=== PATIENT | female | born 1970 | race Caucasian/White ===

== ENCOUNTER 2019-04-04 06:05 | Inpatient (IN) ==
[2019-04-04] MEDS ORDERED: CeFAZolin Syr 3,000MG/30 ML 3,000 MG/30 ML SYRINGE IVPB ONE (06:28)
[2019-04-04] MEDS ORDERED: Albuterol 2.5 MG/3 ML NEBULIZER IH PRN ×2 (06:28→06:58)
[2019-04-04] MEDS ORDERED: Ringers Solution, Lactated 1,000 ML IVC SCH (06:30)
[2019-04-04] MEDS ORDERED: *HR* Midazolam HCl 2 MG/2 ML VIAL ONE (06:48)
[2019-04-04] MEDS ORDERED: Dexamethasone 4 MG/ML VIAL ONE (06:48)
[2019-04-04] MEDS ORDERED: *HR* Propofol 200 MG/20 ML VIAL IVP ONE (06:48)
[2019-04-04] MEDS ORDERED: Ondansetron 4 MG/2 ML VIAL ONE (06:48)
[2019-04-04] MEDS ORDERED: Lidocaine -MPF 2% 2 ML VIAL ONE (06:48)
[2019-04-04] MEDS ORDERED: *HR* Rocuronium Bromide 50 MG/5 ML VIAL ONE (06:48)
[2019-04-04] MEDS ORDERED: *HR* FentaNYL (PF) 100 MCG/2 ML VIAL ONE (06:48)
[2019-04-04] MEDS ORDERED: Neostigmine Methylsulfate 3 MG/3 ML SYRINGE ONE (06:48)
[2019-04-04] MEDS ORDERED: Ketorolac 30 MG/ML VIAL ONE (06:48)
[2019-04-04] MEDS ORDERED: Famotidine 20 MG/2 ML VIAL IVP ONE (06:58)
[2019-04-04] MEDS ORDERED: Ketorolac 15 MG/ML VIAL IVP ONE (06:58)
[2019-04-04] MEDS ORDERED: Gabapentin 300 MG CAPSULE PO ONE (06:58)
[2019-04-04] MEDS ORDERED: *HR* Promethazine 25 MG/ML VIAL IVP PRN (06:58)
[2019-04-04] MEDS ORDERED: Acetaminophen IV 1,000 MG/100 ML INFUS..BTL IVPB ONE (06:58)
[2019-04-04] MEDS ORDERED: *HR* OxyCODONE Immed Rel 5 MG TABLET PO PRN (06:58)
[2019-04-04] MEDS ORDERED: Ondansetron 4 MG/2 ML VIAL IVP ONE (06:58)
[2019-04-04] MEDS ORDERED: *HR* HYDROmorphone (PF) 1 MG/ML SYRINGE IVP PRN ×2 (06:58→11:06)
[2019-04-04] MEDS ORDERED: Lidocaine -MPF 1% 2 ML AMPUL ONE (07:18)
[2019-04-04] MEDS ORDERED: *HR* Belladonna Alkaloids/Opium 30 MG RECTAL SUPPOSITORY RC ONE (07:22)
[2019-04-04] MEDS ORDERED: *HR* HYDROMORPHONE 2 MG/ML VIAL ONE (08:22)
[2019-04-04] MEDS ORDERED: tiZANidine 4 MG TABLET PO PRN (11:06)
[2019-04-04] MEDS ORDERED: Ondansetron 4 MG/2 ML VIAL IVP PRN (11:06)
[2019-04-04] MEDS ORDERED: Sennosides 8.6 MG TABLET PO PRN (11:06)
[2019-04-04] MEDS ORDERED: Naloxone 0.4 MG/ML INJ IVP PRN (11:06)
[2019-04-04] MEDS ORDERED: *HR* HYDROcodone/Acet 5/325 mg TABLET PO PRN (11:06)
[2019-04-04] MEDS: Ibuprofen 600 MG TABLET PO SCH ×2 (13:21→18:22)
[2019-04-04] MEDS: *HR* OxyCODONE/APAP 5/325 TABLET PO PRN ×2 (15:23→22:55)
[2019-04-04] MEDS ORDERED: risperiDONE 1 MG TABLET PO SCH (18:00)
[2019-04-04] MEDS: PARoxetine 30 MG TABLET PO SCH (22:53)
[2019-04-04] MEDS: clonazePAM 1 MG TABLET PO SCH (22:53)
[2019-04-05] MEDS: Ibuprofen 600 MG TABLET PO SCH ×3 (00:44→11:57)
[2019-04-05 06:26] LABS: Basophils % 0.2 %; Hematocrit 43.2 % (35.3-44.9); Hemoglobin 14.7 g/dL (11.5-15.4); Immature Granulocytes % 0.5 % (0-4); Lymphocytes # 1.2 K/mcL (0.6-4.6); Lymphocytes % 12.8 %; Mean Corpuscular Hemoglobin 34.8 pg (28.0-33.3); Mean Corpuscular Volume 102.1 fL (83.0-100.0); Mean Platelet Volume 10.4 fL (9.4-12.4); Monocytes # 0.7 K/mcL (0.0-1.3); Monocytes % 6.9 %; Neutrophils # 7.7 K/mcL (1.6-8.9); Platelet Count 212 K/mcL (140-400); Red Blood Count 4.23 M/mcL (3.82-4.97); Red Cell Distribution Width 13.4 % (11.5-14.5); Segmented Neutrophils % 79.6 %; White Blood Count 9.6 K/mcL (4.3-11.1)
[2019-04-05 06:53] LABS: eGFR For African Americans > 60 (> 60); eGFR For Non-African Americans > 60 (> 60)
[2019-04-05] MEDS: clonazePAM 1 MG TABLET PO SCH (07:43)
[2019-04-05] MEDS: *HR* OxyCODONE/APAP 5/325 TABLET PO PRN ×2 (07:45→13:00)
[2019-04-05] MEDS: PARoxetine 30 MG TABLET PO SCH (07:46)
[2019-04-05] MEDS ORDERED: risperiDONE 1 MG TABLET PO SCH (09:00)
[2019-04-05] MEDS ORDERED: Cholecalciferol (D-3) 1,000 UNIT (25MCG) TABLET PO SCH (09:00)
[2019-04-05] MEDS ORDERED: NON-FORMULARY MEDICATION 1 EACH EACH (Meloxicam [Mobic] 15 MG) PO SCH (09:00)
[2019-04-05 12:30] VITALS: BP 130/81
== END 2019-04-05 15:00 | disposition home or self-care (01) | DRG 742 ==
LOC: SAMDAY 06:05 → 1NENUPED 11:07
PROVIDERS: ADMIT Obstetrics & Gynecology; ATTEND Obstetrics & Gynecology

== ENCOUNTER 2020-07-14 16:15 | Inpatient (IN) ==
[2020-07-14] MEDS ORDERED: Ondansetron ODT 4 MG TAB.RAPDIS SL ONE (16:42)
[2020-07-14 17:00] LABS: Basophils # 0.1 K/mcL (0.0-0.2); Basophils % 0.5 %; Eosinophils # 0.1 K/mcL (0.0-0.6); Eosinophils % 1.4 %; Hematocrit 42.8 % (35.3-44.9); Hemoglobin 14.4 g/dL (11.5-15.4); Immature Granulocytes % 0.2 % (0-4); Lymphocytes # 2.1 K/mcL (0.6-4.6); Lymphocytes % 22.6 %; Mean Corpuscular HGB Conc 33.6 g/dL (31.6-35.5); Mean Corpuscular Hemoglobin 30.6 pg (28.0-33.3); Mean Corpuscular Volume 91.1 fL (83.0-100.0); Mean Platelet Volume 11.9 fL (9.4-12.4); Monocytes # 0.8 K/mcL (0.0-1.3); Monocytes % 8.5 %; Neutrophils # 6.1 K/mcL (1.6-8.9); Platelet Count 194 K/mcL (140-400); Red Cell Distribution Width 13.3 % (11.5-14.5); Segmented Neutrophils % 66.8 %; White Blood Count 9.1 K/mcL (4.3-11.1)
[2020-07-14 17:24] LABS: Acetaminophen < 10 mcg/mL (10-20); BUN/Creatinine Ratio 7 (6-26); Blood Urea Nitrogen 7 mg/dL (6-20); Carbon Dioxide 21 mEq/L (23-29); Chloride 103 mEq/L (98-107); Ethanol < 10 mg/dL (Less than 10); Glucose 87 mg/dL (70-105); Osmolality,Calculated 279 (280-300); Potassium 3.5 mEq/L (3.5-5.1); Salicylate < 2.5 mg/dL (15.0-30.0); Sodium 136 mEq/L (136-145); eGFR For African Americans > 60 (> 60); eGFR For Non-African Americans 59 (> 60)
[2020-07-14 17:32] LABS: Bacteria,Urine Few per hpf (None-Few); Bilirubin,Urine Negative (Negative); Blood,Urine Negative (Negative); Clarity,Urine Clear (Clear); Color,Urine Light-Yellow (Yellow); Glucose,Urine (UA) Normal (Normal); Ketones,Urine 10 mg/dL (Negative); Leukocyte Esterase,Urine Large (Negative); Mucus,Urine Few per lpf (None-Few); Nitrite,Urine Negative (Negative); Protein,Urine Negative (Neg-Trace); RBC,Urine 0-3 per hpf (0-3); Squamous Epithelial Cell,Urine Few per hpf (None-Few); Transitional Epi Cells,Urine Few per hpf (None-Few); Urobilinogen,Urine Normal (Normal); WBC,Urine 30-50 per hpf (0-3)
[2020-07-14 18:11] LABS: Adenovirus Not Detected (Not Detect); Bordetella Pertussis Not Detected (Not Detect); Chlamydophila pneumoniae Not Detected (Not Detect); Coronavirus 229E Not Detected (Not Detect); Coronavirus HKU1 Not Detected (Not Detect); Coronavirus NL63 Not Detected (Not Detect); Coronavirus OC43 Not Detected (Not Detect); Human Metapneumovirus Not Detected (Not Detect); Human Rhinovirus/Enterovirus Not Detected (Not Detect); Influenza A Subtype 2009 H1 Not Detected (Not Detect); Influenza B Not Detected (Not Detect); Mycoplasma pneumoniae Not Detected (Not Detect); Parainfluenza Virus 1 Not Detected (Not Detect); Parainfluenza Virus 2 Not Detected (Not Detect); Parainfluenza Virus 3 Not Detected (Not Detect); Parainfluenza Virus 4 Not Detected (Not Detect); Respiratory Syncytial Virus Not Detected (Not Detect); SARS-CoV-2 Not Detected (Not Detect)
[2020-07-14 18:14] LABS: Amphetamine Screen,Urine Negative ng/mL (Cutoff=1000); Barbiturate Screen,Urine Negative ng/mL (Cutoff=200); Benzodiazepines Screen,Urine Positive ng/mL (Cutoff=200); Cannabinoid Screen,Urine Negative ng/mL (Cutoff = 50); Cocaine Screen,Urine Negative ng/mL (Cutoff= 300); Opiate Screen,Urine Negative ng/mL (Cutoff=300); Phencyclidine Screen,Urine Negative ng/mL (Cutoff=25)
[2020-07-14] MEDS ORDERED: *HR* LORazepam 2 MG/ML VIAL IM PRN (22:49)
[2020-07-14] MEDS ORDERED: haloperidoL 5 MG TABLET PO PRN (22:49)
[2020-07-14] MEDS ORDERED: hydrOXYzine pamoate 25 MG CAPSULE PO PRN (22:49)
[2020-07-14] MEDS ORDERED: Acetaminophen 325 MG TABLET PO PRN (22:49)
[2020-07-14] MEDS ORDERED: traZODone 50 MG TABLET PO PRN (22:49)
[2020-07-14] MEDS ORDERED: Haloperidol Lactate 5 MG/ML VIAL IM PRN (22:49)
[2020-07-14] MEDS ORDERED: *HR* LORazepam 1 MG TABLET PO PRN (22:49)
[2020-07-15] MEDS: risperiDONE 1 MG TABLET PO SCH ×2 (08:53→20:35)
[2020-07-15] MEDS ORDERED: BuPROPion SR (12 HR) 150 MG TABLET PO SCH (09:00)
[2020-07-15] MEDS ORDERED: MOM Conc 10 ML UD.LIQ PO PRN (12:13)
[2020-07-15] MEDS ORDERED: Mag Hydrox/Al Hydrox/Simeth 30 ML UDC PO PRN (12:13)
[2020-07-15] MEDS: diazePAM 5 MG TABLET PO SCH (20:35)
[2020-07-16] MEDS ORDERED: BuPROPion XL (24 HR) 150 MG TABLET PO SCH (09:00)
[2020-07-16] MEDS: diazePAM 5 MG TABLET PO SCH (09:16)
[2020-07-16] MEDS: risperiDONE 1 MG TABLET PO SCH (09:16)
[2020-07-16 09:43] VITALS: BP 105/66
== END 2020-07-16 12:45 | disposition home or self-care (01) | DRG 918 ==
LOC: EMEROOARM 16:15 → 1ANU 22:41
PROVIDERS: ADMIT Psychiatry & Neurology Psychiatry; ATTEND Psychiatry & Neurology Psychiatry